=== PATIENT | male | born 1945 | race Caucasian/White ===

== ENCOUNTER → 2021-12-12 10:00 | Outpatient (BNVA) | payer MEDICARE, SELFPAY | PROVIDERS: PCP Internal Medicine; Visit Provider Internal Medicine Rheumatology | DX: M05.9 Rheumatoid arthritis with rheumatoid factor, unspecified (principal); C18.9 Malignant neoplasm of colon, unspecified; Z79.899 Other long term (current) drug therapy | CPT/HCPCS: 99212 ==

== ENCOUNTER 2022-06-30 10:14 | Outpatient (REF) | payer MEDICARE, OTHER, SELFPAY ==
[2022-06-30 14:11] LABS: MANUAL DIFF FLAG NO
[2022-06-30 14:17] LABS: Basophils Percent Auto 0.4 % (0-2); Eosinophils Absolute Auto 0.1 X10*3/uL (0.0-0.4); Eosinophils Percent Auto 0.8 % (0-4); Hematocrit 34.9 % (42.0-52.0); Hemoglobin 10.7 g/dl (14.0-18.0); Imm Gran Abs Auto 0.04 X10*3/uL (0.00-0.03); Imm Gran Pct Auto 0.5 % (0.0-0.4); Lymphocytes Absolute Auto 0.9 X10*3/uL (1.2-4.9); Lymphocytes Percent Auto 10.5 % (20-40); Mean Corpuscular HGB Conc 30.7 g/dl (31.0-36.0); Mean Corpuscular Hemoglobin 29.4 pg (27.0-33.0); Mean Corpuscular Volume 95.9 fL (80.0-98.0); Monocytes Absolute Auto 0.8 X10*3/uL (0.1-1.2); Monocytes Percent Auto 9.2 % (2-11); Neutrophils Absolute Auto 6.5 x10*3/uL (2.0-8.3); Neutrophils Percent Auto 78.6 % (45-73); Platelet Count 245 X10*3/uL (160-400); Red Blood Count 3.64 X10*6/uL (4.60-5.80); Red Cell Distribution Width 17.7 % (11.0-16.0); White Blood Count 8.3 X10*3/uL (4.8-10.8)
[2022-06-30 14:48] LABS: Alanine Aminotransferase 39 U/L (0-40); Albumin Level 3.4 g/dL (3.5-5.0); Alkaline Phosphatase 169 U/L (39-117); Anion Gap 18 (12-20); Aspartate Amino Transferase 21 U/L (5-37); Blood Urea Nitrogen 21 mg/dL (9-16); C Reactive Protein 5.42 mg/dL (< or = 0.50); Calcium 8.8 mg/dL (8.4-10.2); Carbon Dioxide 25 mmol/L (22-29); Chloride 100 mmol/L (96-108); Estimated Glomerular Filt Rate > 60; Glucose Random 166 mg/dL (60-115); Potassium 4.1 mmol/L (3.3-5.1); Sodium 139 mmol/L (135-145); Total Protein 6.6 g/dL (6.5-8.0)
[2022-06-30 14:56] LABS: Erythrocyte Sedimentation Rate 83 MM/HR (0-15)
[2022-06-30 15:41] LABS: Bilirubin Total 0.6 mg/dL (0.0-1.0)
== END 2022-06-30 10:15 | disposition home or self-care (01) ==
LOC: HO.WFDLDS 10:14
PROVIDERS: Visit Provider Internal Medicine Rheumatology
DX: M05.9 Rheumatoid arthritis with rheumatoid factor, unspecified (principal); Z79.899 Other long term (current) drug therapy
CPT/HCPCS: 36415; 80053; 85025; 85652; 86140

== ENCOUNTER → 2022-07-06 11:25 | Outpatient (BNVA) | payer MEDICARE, OTHER, SELFPAY | PROVIDERS: PCP Internal Medicine; Visit Provider Internal Medicine Rheumatology | DX: M05.9 Rheumatoid arthritis with rheumatoid factor, unspecified (principal); C18.9 Malignant neoplasm of colon, unspecified; Z79.899 Other long term (current) drug therapy | CPT/HCPCS: 99212 ==

== ENCOUNTER 2022-10-16 09:09 | Outpatient (REF) | payer MEDICARE, OTHER, SELFPAY ==
[2022-10-16 11:36] LABS: MANUAL DIFF FLAG NO
[2022-10-16 11:46] LABS: Basophils Percent Auto 0.3 % (0-2); Eosinophils Absolute Auto 0.1 X10*3/uL (0.0-0.4); Eosinophils Percent Auto 1.1 % (0-4); Hematocrit 34.8 % (42.0-52.0); Imm Gran Abs Auto 0.03 X10*3/uL (0.00-0.03); Imm Gran Pct Auto 0.4 % (0.0-0.4); Lymphocytes Absolute Auto 0.9 X10*3/uL (1.2-4.9); Lymphocytes Percent Auto 10.6 % (20-40); Mean Corpuscular HGB Conc 31.6 g/dl (31.0-36.0); Mean Platelet Volume 10.9 fL (9.4-12.4); Monocytes Absolute Auto 0.8 X10*3/uL (0.1-1.2); Monocytes Percent Auto 9.6 % (2-11); Neutrophils Absolute Auto 6.2 x10*3/uL (2.0-8.3); Platelet Count 225 X10*3/uL (160-400); Red Blood Count 3.55 X10*6/uL (4.60-5.80); Red Cell Distribution Width 17.5 % (11.0-16.0)
[2022-10-16 12:34] LABS: Alanine Aminotransferase 13 U/L (0-40); Albumin Level 3.2 g/dL (3.5-5.0); Alkaline Phosphatase 115 U/L (39-117); Anion Gap 14 (12-20); Aspartate Amino Transferase 18 U/L (5-37); Bilirubin Total 0.5 mg/dL (0.0-1.0); Blood Urea Nitrogen 21 mg/dL (9-16); C Reactive Protein 3.58 mg/dL (< or = 0.50); Calcium 8.7 mg/dL (8.4-10.2); Carbon Dioxide 27 mmol/L (22-29); Chloride 102 mmol/L (96-108); Estimated Glomerular Filt Rate > 60; Glucose Random 128 mg/dL (60-115); Potassium 4.1 mmol/L (3.3-5.1); Sodium 139 mmol/L (135-145); Total Protein 6.1 g/dL (6.5-8.0)
[2022-10-16 12:38] LABS: Erythrocyte Sedimentation Rate 78 MM/HR (0-15)
== END 2022-10-16 09:10 | disposition home or self-care (01) ==
LOC: HO.WFDLDS 09:09
PROVIDERS: Visit Provider Internal Medicine Rheumatology
DX: M05.9 Rheumatoid arthritis with rheumatoid factor, unspecified (principal); Z79.899 Other long term (current) drug therapy
CPT/HCPCS: 36415; 80053; 85025; 85652; 86140

== ENCOUNTER → 2022-10-17 10:49 | Outpatient (BNVA) | payer MEDICARE, OTHER, SELFPAY | PROVIDERS: PCP Internal Medicine; Visit Provider Internal Medicine Rheumatology | DX: M25.561 Pain in right knee (principal); M05.9 Rheumatoid arthritis with rheumatoid factor, unspecified; Z79.899 Other long term (current) drug therapy; Z96.652 Presence of left artificial knee joint | CPT/HCPCS: 20610; 99212 ==

== ENCOUNTER 2023-02-13 10:26 | Outpatient (AMB) | payer MEDICARE, OTHER, SELFPAY ==
[2023-02-13 10:45] VITALS: BP 98/62; PULSE 85; TEMP 36.4; O2SAT 94; BMI 22.4
--- NOTE | 2023-02-13 10:45 | MHC.OFFVIS ---
Intake Vital Signs 02/13/23 10:45 Height 5 ft 3 in Weight 126 lb 8.725 oz BMI 22.4 BP 98/62 Blood Pressure Location Lt brachial Position Sitting Pulse 85 Pulse Source Pulse Oximeter Temp 97.5 F Temp Source Skin Pulse Oximetry (%) 94 Intake Visit Reasons: ra Intake Note: Pt seen today for RA follow up. reports pt was seen at [facility] 2 weeks ago 01/26 for seizure, unknown cause. Marine Reporter Required: No Accompanied by: Spouse Gavi Allergies No Known Allergies Allergy (Verified 02/13/23 10:47) Medication List - Last Reconciled 02/13/23 by Eldon Hayden MD acetaminophen ER (Tylenol 8 Hour) 650 mg PO Q12H PRN apixaban (Eliquis) 5 mg PO BID atorvastatin 80 mg PO DAILY ferrous sulfate 325 mg PO DAILY folic acid 1 mg PO DAILY insulin glargine (Lantus Solostar U-100 Insulin) 10 units subcut QPM lansoprazole 90 mg PO DAILY methotrexate sodium 15 mg (6 x 2.5 mg) PO QWEEK prednisone 2.5 mg PO DAILY HPI HPI Comments History of Present Illness Details The patient returns accompanied by his for evaluation of his rheumatoid arthritis. I had last seen him back in September. He was on the prednisone at 2.5 mg daily, methotrexate 12.5 mg weekly and folic acid 1 mg daily. I increased his methotrexate up to 15 mg. He seems to tolerate that okay. However about 2 weeks ago he was found to be shaking and to be unresponsive. He was thought to have had a seizure. He was hospitalized and also found to have UTI and bladder outlet obstruction. He was given antibiotics, seizure medications and had a procedure to place a catheter that included dilation of the urethra. The catheter has been out for about a week and he seems to be urinating okay. He finished off antibiotics about around that time as well. Joints have been a bit more problematic, particularly the left shoulder and left wrist. There is also pain in the other wrist and the feet. He did receive a corticosteroid injection in the right knee last time in that did help him for some time. He was previously a bit better controlled taking the Xeljanz in addition to the methotrexate. The Xeljanz was held when he developed cancer, severe anemia from GI bleeding and he had subsequent surgery and chemotherapy. [facility] Medical History (Updated 02/13/23 @ 12:02 by Eldon Hayden MD) Barretts esophagus Colon cancer History of knee derangement Kidney stones Long-term use of immunosuppressant medication Seropositive rheumatoid arthritis Social History Household Members: Spouse Housing: [facility] Are you a primary healthcare economics manager to a significant other at home: No Do you presently have visiting nurse or other home services: No 75 years or older and lives alone: No Alcohol intake: never Patient Tobacco Use Status: Former Tobacco user Years Smoked: quit 25 years ago e-Cigarette/Vaping Use: Never Used service: Yes Current occupational status: retired Review of Systems Const Details: Low energy and some weight loss since his hospitalization. Negative for appetite change, fever, chills, malaise ENT Details: Negative for hearing change, tinnitus, oral ulcer, nose bleeds and oral dryness. Card Details: Negative chest pain, edema and syncope Resp Details: Negative for SOB, cough and wheezing GI Details: Negative indigestion/heartburn, nausea, abdominal pain, bowel changes, diarrhea, constipation and bloody stool. Details: Negative for dysuria, hematuria, nocturia, decreased force/flow and genital discharge Endo Details: Negative for polyuria and polydypsia Burke/Lymph Details: Negative for excessive bruising or bleeding. Physical Exam Vital Signs: Last Vital Signs Temp 97.5 F 02/13/23 10:45 Pulse 85 02/13/23 10:45 BP 98/62 02/13/23 10:45 Pulse Ox 94 02/13/23 10:45 BMI result Body Mass Index 22.4 APPEARANCE: Patient in no acute distress EYES no redness, pupils equal and reactive to light, eyelids normal EXTREMITIES: No edema, no calf tenderness, normal peripheral pulses. SKIN: No inflammatory or neoplastic lesions. Normal color and turgor JOINT EXAM: Cervical Spine:? Full range of motion without pain; no tenderness. Thoracic Spine:? No scoliosis.? No tenderness on palpation. Lumbar Spine:? Alignment normal.? Full range of motion without pain, no tenderness. Chest Wall:.? No tenderness, swelling, increased warmth or erythema. Hands:? Right:? Mild swelling with slight tenderness of the 1st 2 MCPs.? There is slight bony enlargement at the PIP joints; the 3rd and 4th have slight tenderness..? No other tenderness, thenar atrophy or sensory loss.? Left:? Mild tenderness and swelling of the 1st 2 MCP joints.? Some minimal bony thickening at the 2nd through 5th PIP joints without tenderness.? No thenar atrophy or sensory loss. Wrists:? Right: Mild to moderate pain with 30 degrees flexion and 45 degrees of extension.? There is mild soft tissue swelling and mild tenderness but no redness or warmth.? Left: Mild pain with 75 degrees of flexion and 30 degrees of extension with mild tenderness and slight swelling. Elbows:.? Left:? He lacks about 10 degrees of full extension with some thickening and mild pain with attempts at full extension or flexion beyond 90 degrees.? There is also mild tenderness but no redness or warmth.? Left:? Mild pain with attempts at the normal range of motion. He lacks about 10-15 degrees of full extension. There is mild tenderness and thickening over the joint space but no redness or warmth. Shoulders:? Left: Mild to moderate pain with abduction 90 degrees or with attempts at rotation.? Mild anterior tenderness.? No weakness or adenopathy.? Right:?? F mild pain with abduction 135 degrees or with the extremes of normal internal or external rotation. No abductor weakness or adenopathy. No swelling, increased warmth or erythema. Hips:.? Full range of motion without pain. Hip bursa:.? No tenderness. Knees:.??Right: Mild pain with the extremes of normal flexion or extension. There is mild patellofemoral crepitus but no effusion. There is mild and lateral tenderness without redness or warmth.? Left: Evidence of previous surgery.? No pain with motion, swelling, redness or warmth. Ankles:? Left: Slight discomfort with extremes of motion with some mild? tenderness but no swelling.? Right: ? Normal pain-free range of motion with mild tenderness but no swelling, increased warmth or erythema. Feet:.? Normal pain-free range of motion with evidence of bilateral hallux valgus deformity, more prominent on the left.? There is some bony enlargement at the 1st MTP joint bilaterally.? No soft tissue swelling, redness or warmth.? tenderness, swelling, increased warmth or erythema. Office Procedures Joint Injection/Drain Joint Injection/Drain Primary Site: left shoulder Injected: 40 mg of, Kenalog, with 1 mL of and 1% plain lidocaine Coding 98468 - Large joint Procedure code (CPT) selection complete Results Reviewed Results Reviewed: Lab work from [facility]: January 30: White count 5.9, hemoglobin 10.6, A1c 7.0, creatinine 1.2, AST 28, CPK 102 Assessment & Plan Assessment & Plan (1) Long-term use of immunosuppressant medication: Code(s): Z79.899 - Other intermodal dispatcher (current) drug therapy (2) Seropositive rheumatoid arthritis: Comment: Seropositive; hands, knee involvement. Onset ~ 2001. Hx left TKR 2004. Methotrexate started November 2011, Enbrel added 07/11. Methotrexate had to be stopped 07/12 due to LFT elevation. Enbrel ineffective. switch to Humira (12/11) but ineffective. Orencia started in place of Humira 03/13, sulfasalazine added 04/13 01/12: Orencia stopped. Xeljanz begun with sulfasalazine 02/13, low dose methotrexate added 05/17 - sulfasalazine stopped; methotrexate and Xeljanz continued 06/2021: Xeljanz held due to chemotherapy for malignancy mid 2021: Methotrexate restarted Code(s): M05.9 - Rheumatoid arthritis with rheumatoid factor, unspecified Plan Rheumatoid arthritis with still some ongoing synovitis. This is particularly evident in the wrists, elbows, shoulders. When he had reasonable blood work at [facility] showing that we could continue with the methotrexate at the current dose. In the past he had a better response when he was on the Xeljanz in conjunction with the methotrexate. Use of the Xeljanz now may be a problem since he has got a cancer that is just been treated, he has known carotid disease, and he is a diabetic. In any case he has had just recently UTI so it would be reasonable to wait a few months to see if the UTI problem becomes more problematic for him. That would make further immunosuppression imossible for him. Today I offered a subacromial corticosteroid injection in the left shoulder. With the patient's consent the left shoulder was prepped with ChloraPrep and alcohol. Under a topical ethyl chloride spray the left subacromial space was injected with 40 mg of triamcinolone and 1 cc of 1% lidocaine. The patient tolerated the procedure without any acute adverse effects. That should give him some systemic benefit with the increased dose of corticosteroid. We will see him back in 2 months and consider additional treatment. In the meantime he will stay with the methotrexate as above get lab work before the next visit. Orders: Orders AMB Joint Injection/Aspiration Today M05.9 - Rheumatoid arthritis with rheumatoid factor, unspecified Coding Level of Care Code Est Pt Level 3 (71341) Diagnoses Long-term use of immunosuppressant medication Z79.899 Seropositive rheumatoid arthritis M05.9 CPT Codes Coding - 58295 Large joint: 22779 - Large joint ([id number])
== END 2023-02-13 11:37 | disposition home or self-care (01) ==
PROVIDERS: PCP Internal Medicine; Visit Provider Internal Medicine Rheumatology
DX: Z79.899 Other long term (current) drug therapy (principal); M05.712 Rheumatoid arthritis with rheumatoid factor of left shoulder without organ or systems involvement; M05.769 Rheumatoid arthritis with rheumatoid factor of unspecified knee without organ or systems involvement
CPT/HCPCS: 20610; 99213

== ENCOUNTER → 2023-02-13 10:26 | Outpatient (BNVA) | payer MEDICARE, OTHER, SELFPAY | PROVIDERS: PCP Internal Medicine; Visit Provider Internal Medicine Rheumatology | DX: M05.9 Rheumatoid arthritis with rheumatoid factor, unspecified (principal); Z79.899 Other long term (current) drug therapy | CPT/HCPCS: 20610; 99212 ==

== ENCOUNTER 2023-04-19 11:47 | Outpatient (AMB) | payer MEDICARE, OTHER, SELFPAY ==
--- NOTE | 2023-04-19 11:53 | MHC.OFFVIS ---
Intake Vital Signs 04/19/23 12:06 Height 5 ft 3 in Weight 128 lb 15.527 oz BMI 22.8 BP 110/70 Blood Pressure Location Lt brachial Position Sitting Respiration 24 H Pulse 76 Pulse Source Palpation Temp 97.2 F Temp Source Skin Intake Visit Reasons: ra Intake Note: Patient here for RA follow up. Self Storage Manager Required: No Accompanied by: Spouse Allergies No Known Allergies Allergy (Verified 04/19/23 12:06) HPI HPI Comments History of Present Illness Details The patient returns for evaluation of his rheumatoid arthritis. His accompanies him today. He remains on prednisone taking 2.5 mg daily but occasionally his adds another 2.5 mg in the afternoon if he is having more pain. His methotrexate is at 15 mg weekly and folic acid 1 mg daily. The joint pains are not too problematic for him. He mostly complains of fatigue, low energy, and some numbness in the left hand. He has had no further urinary infections but does admit he is up 4 or 5 times a night with nocturia. He remains on apixaban, atorvastatin, Plavix, and pantoprazole. His breathing seems stable. His activity is mostly limited by some knee pain on the right. The left knee replacement seems to be doing fine. [facility] Medical History (Updated 02/13/23 @ 12:02 by Eldon Hayden MD) Long-term use of immunosuppressant medication History of knee derangement Kidney stones Barretts esophagus Colon cancer Seropositive rheumatoid arthritis Social History Household Members: [facility] Are you a primary critical care physician to a significant other at home: No Do you presently have visiting nurse or other home services: No 75 years or older and lives alone: No Alcohol intake: never Patient Tobacco Use Status: Former Tobacco user Years Smoked: quit 25 years ago e-Cigarette/Vaping Use: Never Used service: Yes Current occupational status: retired Review of Systems Const Details: Low energy. Negative for appetite change, weight change, fever, chills, malaise Eyes Details: Negative for vision change, dry eyes,headaches and dizziness ENT Details: Negative for hearing change, tinnitus, oral ulcer, nose bleeds and oral dryness. Card Details: Negative chest pain, edema and syncope Resp Details: Negative for SOB, cough and wheezing GI Details: Negative indigestion/heartburn, nausea, abdominal pain, bowel changes, diarrhea, constipation and bloody stool. Endo Details: Negative for polyuria and polydypsia Burke/Lymph Details: Negative for excessive bruising or bleeding. Physical Exam Vital Signs: Last Vital Signs Temp 97.2 F 04/19/23 12:06 Pulse 76 04/19/23 12:06 Resp 24 H 04/19/23 12:06 BP 110/70 04/19/23 12:06 BMI result Body Mass Index 22.8 APPEARANCE: Patient in no acute distress EYES no redness, pupils equal and reactive to light, eyelids normal EXTREMITIES: No edema, no calf tenderness. NEURO: Oriented and alert x3. Her strength is reduced in the left hand. He does have some numbness over the fingertips in that hand. Reflexes symmetric. Gait normal. SKIN: No inflammatory or neoplastic lesions. Normal color and turgor JOINT EXAM: Cervical Spine:? Full range of motion without pain; no tenderness. Thoracic Spine:? No scoliosis.? No tenderness on palpation. Lumbar Spine:? Alignment normal.? Full range of motion without pain, no tenderness. Chest Wall:.? No tenderness, swelling, increased warmth or erythema. Hands:? Right:? Mild swelling with slight tenderness of the 1st 2 MCPs.? There is slight bony enlargement at the PIP joints; no tenderness today.? No other tenderness, thenar atrophy or sensory loss.? Left:? Mild tenderness and swelling of the 1st 2 MCP joints.? Some minimal bony thickening at the 2nd through 5th PIP joints without tenderness.? There is some thenar atrophy and decreased sensation over the tips of the fingers. Wrists:? Right: Mild with 30 degrees flexion and 45 degrees of extension.? There is mild soft tissue swelling and mild tenderness but no redness or warmth.? Left: Mild pain with 75 degrees of flexion and 30 degrees of extension with mild tenderness and slight swelling. Elbows:.? Left:? He lacks about 10 degrees of full extension with some thickening and but no he pain with attempts at full extension or flexion beyond 90 degrees.? There is also mild tenderness but no redness or warmth.? Left:? Mild pain with attempts at the normal range of motion. He lacks about 10-15 degrees of full extension. There is mild tenderness and thickening over the joint space but no redness or warmth. Shoulders:? Left: Mild pain with abduction at 135 degrees or with attempts at rotation.? Mild anterior tenderness.? No weakness or adenopathy.? Right:?? Mild discomfort with abduction 135 degrees or with the extremes of normal internal or external rotation. No abductor weakness or adenopathy. No swelling, increased warmth or erythema. Hips:.? Full range of motion without pain. Hip bursa:.? No tenderness. Knees:.??Right: no pain with the extremes of normal flexion or extension. There is mild patellofemoral crepitus but no effusion. There is mild and lateral tenderness without redness or warmth.? Left: Evidence of previous surgery.? No pain with motion, swelling, redness or warmth. Ankles:? Left: Slight discomfort with extremes of motion with some mild? tenderness but no swelling.? Right: ? Normal pain-free range of motion with mild tenderness but no swelling, increased warmth or erythema. Feet:.? Normal pain-free range of motion with evidence of bilateral hallux valgus deformity, more prominent on the left.? There is some bony enlargement at the 1st MTP joint bilaterally.? No soft tissue swelling, redness or warmth.? tenderness, swelling, increased warmth or erythema. ? Assessment & Plan Assessment & Plan (1) History of total left knee replacement: Code(s): Z96.652 - Presence of left artificial knee joint (2) Long-term use of immunosuppressant medication: Code(s): Z79.899 - Other terminal operator (current) drug therapy (3) Seropositive rheumatoid arthritis: Comment: Seropositive; hands, knee involvement. Onset ~ 2001. Hx left TKR 2004. Methotrexate started November 2011, Enbrel added 07/11. Methotrexate had to be stopped 07/12 due to LFT elevation. Enbrel ineffective. switch to Humira (12/11) but ineffective. Orencia started in place of Humira 03/13, sulfasalazine added 04/13 01/12: Orencia stopped. Xeljanz begun with sulfasalazine 02/13, low dose methotrexate added 05/17 - sulfasalazine stopped; methotrexate and Xeljanz continued 06/2021: Xeljanz held due to chemotherapy for malignancy mid 2021: Methotrexate restarted Code(s): M05.9 - Rheumatoid arthritis with rheumatoid factor, unspecified Plan: Rheumatoid arthritis with longstanding disease. He has some chronic deformities but I do not see much tenderness today suggesting reasonable control of synovitis with current regimen. The knee replacement continues to do OK. I think at this point, given his multiple other problems, that I would not push further for immunosuppressive treatment. Such treatment might enable us to be a bit lower on the prednisone but would also put him at greater risk for infection. Additionally, switching to a TNF inhibitor might be problematic because of his history of heart failure. Using a CHIQUITA inhibitor also might promote his vascular disease from which he has already had significant problems. We will check lab work today and plan to see him back in about 3 months. He will stay with the 15 mg weekly methotrexate. Orders: Orders Erythrocyte Sedimentation Rate Today M05.9 - Rheumatoid arthritis with rheumatoid factor, unspecified Alanine Aminotransferase Today M05.9 - Rheumatoid arthritis with rheumatoid factor, unspecified, Z79.899 - Other senior care (current) drug therapy Aspartate Amino Transferase Today M05.9 - Rheumatoid arthritis with rheumatoid factor, unspecified, Z79.899 - Other terminal operator (current) drug therapy Creatinine Today M05.9 - Rheumatoid arthritis with rheumatoid factor, unspecified, Z79.899 - Other senior care (current) drug therapy C Reactive Protein Today M05.9 - Rheumatoid arthritis with rheumatoid factor, unspecified Complete Blood Count Auto Diff Today M05.9 - Rheumatoid arthritis with rheumatoid factor, unspecified, Z79.899 - Other terminal operator (current) drug therapy Coding Level of Care Code Est Pt Level 3 (14237) Diagnoses History of total left knee replacement Z96.652 Long-term use of immunosuppressant medication Z79.899 Seropositive rheumatoid arthritis M05.9
[2023-04-19 12:06] VITALS: BP 110/70; PULSE 76; RESP 24; TEMP 36.2; BMI 22.8
== END 2023-04-19 12:24 | disposition home or self-care (01) ==
PROVIDERS: PCP Internal Medicine; Visit Provider Internal Medicine Rheumatology
DX: M05.79 Rheumatoid arthritis with rheumatoid factor of multiple sites without organ or systems involvement (principal); Z79.899 Other long term (current) drug therapy; Z96.652 Presence of left artificial knee joint
CPT/HCPCS: 99214

== ENCOUNTER → 2023-04-19 11:47 | Outpatient (BNVA) | payer MEDICARE, OTHER, SELFPAY | PROVIDERS: PCP Internal Medicine; Visit Provider Internal Medicine Rheumatology ==

== ENCOUNTER 2023-04-20 10:20 | Outpatient (REF) | payer MEDICARE, OTHER, SELFPAY ==
[2023-04-20 14:27] LABS: MANUAL DIFF FLAG NO
[2023-04-20 14:39] LABS: Basophils Percent Auto 0.5 % (0-2); Eosinophils Absolute Auto 0.1 X10*3/uL (0.0-0.4); Eosinophils Percent Auto 1.5 % (0-4); Hematocrit 39.1 % (42.0-52.0); Hemoglobin 12.5 g/dl (14.0-18.0); Imm Gran Abs Auto 0.06 X10*3/uL (0.00-0.03); Lymphocytes Absolute Auto 0.7 X10*3/uL (1.2-4.9); Lymphocytes Percent Auto 10.5 % (20-40); Mean Corpuscular Hemoglobin 33.1 pg (27.0-33.0); Mean Corpuscular Volume 103.4 fL (80.0-98.0); Mean Platelet Volume 11.6 fL (9.4-12.4); Monocytes Absolute Auto 0.5 X10*3/uL (0.1-1.2); Monocytes Percent Auto 7.3 % (2-11); Neutrophils Absolute Auto 4.9 x10*3/uL (2.0-8.3); Neutrophils Percent Auto 79.2 % (45-73); Platelet Count 203 X10*3/uL (160-400); Red Blood Count 3.78 X10*6/uL (4.60-5.80); White Blood Count 6.2 X10*3/uL (4.8-10.8)
[2023-04-20 15:04] LABS: Alanine Aminotransferase 21 U/L (0-40); Aspartate Amino Transferase 22 U/L (5-37); C Reactive Protein 3.67 mg/dL (< or = 0.50); Estimated Glomerular Filt Rate 59
[2023-04-20 15:29] LABS: Erythrocyte Sedimentation Rate 63 MM/HR (0-15)
== END 2023-04-20 10:21 | disposition home or self-care (01) ==
LOC: HO.WFDLDS 10:20
PROVIDERS: Visit Provider Internal Medicine Rheumatology
DX: M05.9 Rheumatoid arthritis with rheumatoid factor, unspecified (principal); Z79.899 Other long term (current) drug therapy
CPT/HCPCS: 36415; 82565; 84450; 84460; 85025; 85652; 86140

== ENCOUNTER 2023-07-19 10:03 | Outpatient (AMB) | payer MEDICARE, OTHER, SELFPAY ==
--- NOTE | 2023-07-19 10:10 | MHC.OFFVIS ---
Intake Vital Signs 07/19/23 10:12 Height 5 ft 3 in Weight 130 lb 4.691 oz BMI 23.1 BP 116/72 Blood Pressure Location Lt brachial Position Sitting Respiration 15 Pulse 62 Pulse Source Pulse Oximeter Temp 97.5 F Temp Source Tympanic Pulse Oximetry (%) 96 Oxygen Delivery Method Room Air Oxygen Flow Rate 99 Intake Visit Reasons: ra Allergies No Known Allergies Allergy (Verified 07/19/23 10:12) Medication List - Last Reconciled 07/19/23 by Eldon Hayden MD acetaminophen ER (Tylenol 8 Hour) 650 mg PO Q12H PRN allopurinol 300 mg PO DAILY apixaban (Eliquis) 5 mg PO BID atorvastatin 80 mg PO DAILY ferrous sulfate 325 mg PO DAILY folic acid 1 mg PO DAILY insulin glargine (Lantus Solostar U-100 Insulin) 10 units subcut QPM methotrexate sodium 15 mg (6 x 2.5 mg) PO QWEEK pantoprazole 40 mg PO DAILY prednisone 2.5 mg PO DAILY HPI HPI Comments History of Present Illness Details The patient returns today with his . Shortly after I had seen him at the end of March he was found to have a mass in the liver. 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 He had a known colon cancer primary and had received surgery and chemotherapy before. He has had no abdominal pain or dysphagia. There has been no constipation or bleeding. It has been decided to put him on chemotherapy. He has received about 3 doses of 5 FU and FORFIRI through his port. He is presently in the midst of such an infusion with a portable device. Apparently he has remained on the 15 mg weekly methotrexate, folic acid 1 mg daily and prednisone 2.5 mg daily. Joints are fairly stable with still some pain in the knees with walking, right elbow, and occasionally the right wrist. He takes acetaminophen if needed for pain. [facility] Medical History Long-term use of immunosuppressant medication History of knee derangement Kidney stones Barretts esophagus Colon cancer Seropositive rheumatoid arthritis Social History Household Members: Spouse Housing: Condominium Are you a primary child day care center worker to a significant other at home: No Do you presently have visiting nurse or other home services: No 75 years or older and lives alone: No Alcohol intake: never Patient Tobacco Use Status: Former Tobacco user Years Smoked: quit 25 years ago e-Cigarette/Vaping Use: Never Used service: Yes Current occupational status: retired Review of Systems Const Details: Some decrease in appetite. Negative for, weight change, fever, chills, malaise and fatigue Eyes Details: Negative for vision change, dry eyes,headaches and dizziness ENT Details: Negative for hearing change, tinnitus, oral ulcer, nose bleeds and oral dryness. Card Details: Negative chest pain, edema and syncope Resp Details: Negative for SOB, cough and wheezing GI Details: Some loose stools with chemotherapy. Negative indigestion/heartburn, nausea, abdominal pain, bowel changes, constipation and bloody stool. Details: Negative for dysuria, hematuria, nocturia, decreased force/flow and genital discharge Skin/Breast Details: Negative for itching, rash, hives, Raynaud's symptoms, sun sensitivity, and skin cancer Endo Details: Negative for polyuria and polydypsia Burke/Lymph Details: Negative for excessive bruising or bleeding. Physical Exam Vital Signs: Last Vital Signs Temp 97.5 F 07/19/23 10:12 Pulse 62 07/19/23 10:12 Resp 15 07/19/23 10:12 BP 116/72 07/19/23 10:12 Pulse Ox 96 07/19/23 10:12 Oxygen Delivery Method Room Air 07/19/23 10:12 Oxygen Flow Rate 99 07/19/23 10:12 BMI result Body Mass Index 23.1 APPEARANCE: Patient in no acute distress EYES no redness, pupils equal and reactive to light, eyelids normal EXTREMITIES: Trace ankle edema. no calf tenderness, normal peripheral pulses. JOINT EXAM: ? Cervical Spine:? Full range of motion without pain; no tenderness. Thoracic Spine:? No scoliosis.? No tenderness on palpation. Lumbar Spine:? Alignment normal.? Full range of motion without pain, no tenderness. Chest Wall:.? No tenderness, swelling, increased warmth or erythema. Hands:? Right:? Mild swelling with slight tenderness of the 1st 2 MCPs.? There is slight bony enlargement at the PIP joints; no tenderness today.? No other tenderness, thenar atrophy or sensory loss.? Left:? Mild tenderness and swelling of the 1st 2 MCP joints.? Some minimal bony thickening at the 2nd through 5th PIP joints without tenderness.? There is some thenar atrophy and decreased sensation over the tips of the fingers. Wrists:? Right: Mild with 30 degrees flexion and 45 degrees of extension.? There is mild soft tissue swelling and mild tenderness but no redness or warmth.? Left: Mild pain with 75 degrees of flexion and 30 degrees of extension with mild tenderness and slight swelling. Elbows:.? Left:? Normal pain-free range of motion. No tenderness or swelling. There is no redness or warmth.? Right: Slight discomfort at full extension. He lacks about 10 degrees of full extension. There is mild tenderness and thickening over the joint space but no redness or warmth. Shoulders:? Left: Mild pain with abduction at 135 degrees or with attempts at rotation.? Mild anterior tenderness.? No weakness or adenopathy.? Right:?? Mild discomfort with the the extremes of normal abduction and internal or external rotation. No abductor weakness or adenopathy. No swelling, increased warmth or erythema. Hips:.? Full range of motion without pain. Hip bursa:.? No tenderness. Knees:.??Right: no pain with the extremes of normal flexion or extension. There is mild patellofemoral crepitus but no effusion. There is mild and lateral tenderness without redness or warmth.? Left: Evidence of previous surgery.? No pain with motion, swelling, redness or warmth. Ankles:? Left: Slight discomfort with extremes of motion with some mild? tenderness but no swelling.? Right: ? Normal pain-free range of motion with mild tenderness but no swelling, increased warmth or erythema. Feet:.? Normal pain-free range of motion with evidence of bilateral hallux valgus deformity, more prominent on the left.? There is some bony enlargement at the 1st MTP joint bilaterally.? No soft tissue swelling, redness or warmth.? tenderness, swelling, increased warmth or erythema. ?? Results Reviewed Results Reviewed: Laboratory Tests 04/20/23 10:21 Hgb 12.5 L Creatinine 1.19 AST 22 ALT 21 C-Reactive Protein 3.67 H Assessment & Plan Assessment & Plan (1) Long-term use of immunosuppressant medication: Code(s): Z79.899 - Other terminal computer operator (current) drug therapy (2) Colon cancer: Comment: 2020 colonoscopy showed [address] CT scan showed mass adjacent to colon. PET scan 04/19 ascending colonic hypermetabolic malignancy. Right lower lobe 1.8 cm irreg nodule most likely metastasis but biopsy showed pneumonia). 06/2021: colon mass resected; chemotherapy started fluorouracil and oxaliplatin 04/2023 solitary liver met - colon adenoca on biopsy 05/2023 Folfiri chemo started Code(s): C18.9 - Malignant neoplasm of colon, unspecified (3) Seropositive rheumatoid arthritis: Comment: Seropositive; hands, knee involvement. Onset ~ 2001. Hx left TKR 2004. Methotrexate started November 2011, Enbrel added 07/11. Methotrexate had to be stopped 07/12 due to LFT elevation. Enbrel ineffective. switch to Humira (12/11) but ineffective. Orencia started in place of Humira 03/13, sulfasalazine added 04/13 01/12: Orencia stopped. Xeljanz begun with sulfasalazine 02/13, low dose methotrexate added 05/17 - sulfasalazine stopped; methotrexate and Xeljanz continued 06/2021: Xeljanz held due to chemotherapy for malignancy mid 2021: Methotrexate restarted Code(s): M05.9 - Rheumatoid arthritis with rheumatoid factor, unspecified Plan Rheumatoid arthritis with still some synovitis evident on exam. Additional treatment options are limited by his comorbidities: His history of heart failure, kidney stones with frequent infections, his history of colon cancer, and now metastatic cancer being treated with chemotherapy agents. The methotrexate toxicity does overlap with some of the toxicities for his chemotherapy so I think we will stop the methotrexate. It could be restarted if and when he gets off the chemotherapy. We will stay with the prednisone at the current low dose. If there are flares of synovitis the only option would be to push up his prednisone a bit. We will aim for follow-up at about 3-4 months. Medications: Discontinued methotrexate sodium Discontinued Reason: Doctor's Order 15 mg (6 x 2.5 mg) PO QWEEK 72 tabs 1RF M05.9 - Rheumatoid arthritis with rheumatoid factor, unspecified Coding Level of Care Code Est Pt Level 4 (46828) Diagnoses Long-term use of immunosuppressant medication Z79.899 Colon cancer C18.9 Seropositive rheumatoid arthritis M05.9
[2023-07-19 10:12] VITALS: BP 116/72; PULSE 62; RESP 15; TEMP 36.4; O2SAT 96; BMI 23.1
== END 2023-07-19 11:25 | disposition home or self-care (01) ==
PROVIDERS: PCP Internal Medicine; Visit Provider Internal Medicine Rheumatology
DX: M05.79 Rheumatoid arthritis with rheumatoid factor of multiple sites without organ or systems involvement (principal); Z79.899 Other long term (current) drug therapy; C18.9 Malignant neoplasm of colon, unspecified
CPT/HCPCS: 99214

== ENCOUNTER → 2023-07-19 10:03 | Outpatient (BNVA) | payer MEDICARE, OTHER, SELFPAY | PROVIDERS: PCP Internal Medicine; Visit Provider Internal Medicine Rheumatology | DX: M05.9 Rheumatoid arthritis with rheumatoid factor, unspecified (principal); C18.9 Malignant neoplasm of colon, unspecified; Z79.899 Other long term (current) drug therapy | CPT/HCPCS: 99212 ==

== ENCOUNTER 2024-01-08 10:47 | Outpatient (AMB) | payer MEDICARE, OTHER, SELFPAY ==
[2024-01-08 10:53] VITALS: BP 112/60; PULSE 93; O2SAT 98; BMI 22.0
--- NOTE | 2024-01-08 10:53 | A.OFFVIS_ITS ---
Vital Signs 01/08/24 10:53 Height 5 ft 3 in Weight 124 lb 1.924 oz BMI 22.0 BP 112/60 Blood Pressure Location Rt brachial Position Sitting Pulse 93 Pulse Source Pulse Oximeter Pulse Oximetry (%) 98 Oxygen Delivery Method Room Air Intake Visit Reasons: Arm Pain Intake Note: S/P radiation with oncology, reports bl arm pain since then. Last seen by Dr Hayden June 2023. Research Librarian Required: No Accompanied by: Spouse Allergies No Known Allergies Allergy (Verified 01/08/24 11:04) Medication List - Last Reconciled 01/08/24 by Bernice Arellano MD acetaminophen ER (Tylenol 8 Hour) 650 mg PO Q12H PRN allopurinol 300 mg PO DAILY apixaban (Eliquis) 5 mg PO BID atorvastatin 80 mg PO DAILY ferrous sulfate 325 mg PO DAILY folic acid 1 mg PO DAILY insulin glargine (Lantus Solostar U-100 Insulin) 10 units subcut QPM pantoprazole 40 mg PO DAILY prednisone 2.5 mg PO DAILY HPI Comments Details: 78-year-old male with seropositive RA returns for follow-up with his . Patient completed chemotherapy recently and also completed radiation therapy 2 weeks ago. No further chemotherapy or radio therapy is scheduled at this point. Per he started having flare-up of his arthritis 1 or 2 weeks ago getting his arms he has increased his prednisone to 5 mg daily over the last 3-4 days with some relief. Most recent history by Dr. Hayden 06/2023: The patient returns today with his . Shortly after I had seen him at the end of March he was found to have a mass in the liver. 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 He had a known colon cancer primary and had received surgery and chemotherapy before. He has had no abdominal pain or dysphagia. There has been no constipation or bleeding. It has been decided to put him on chemotherapy. He has received about 3 doses of 5 FU and FORFIRI through his port. He is presently in the midst of such an infusion with a portable device. Apparently he has remained on the 15 mg weekly methotrexate, folic acid 1 mg daily and prednisone 2.5 mg daily. Joints are fairly stable with still some pain in the knees with walking, right elbow, and occasionally the right wrist. He takes acetaminophen if needed for pain. [facility] Medical History Long-term use of immunosuppressant medication History of knee derangement Kidney stones Barretts esophagus Colon cancer Seropositive rheumatoid arthritis Social History Household Members: Spouse [facility] Are you a primary career services representative to a significant other at home: No Do you presently have visiting nurse or other home services: No 75 years or older and lives alone: No Alcohol intake: never Patient Tobacco Use Status: Former Tobacco user Years Smoked: quit 25 years ago e-Cigarette/Vaping Use: Never Used service: Yes Current occupational status: retired Review of Systems ENT Reports neck pain Musc Reports arthralgias, Reports joint swelling, Reports neck pain and Reports stiffness Physical Exam Vital Signs: Last Vital Signs Pulse 93 01/08/24 10:53 BP 112/60 01/08/24 10:53 Pulse Ox 98 01/08/24 10:53 Oxygen Delivery Method Room Air 01/08/24 10:53 BMI result Body Mass Index 22.0 Const General: cooperative Nutritional Appearance: cachectic Orientation/consciousness: patient oriented x3 Limitations: ambulation with cane HEENT Other: Bilateral temporal wasting Resp Effort & Inspection: normal respiratory effort and able to speak in complete sentences Neuro General: patient oriented x3 Extrem Other: Bilateral dorsal wrist swelling and tenderness. Per patient the swelling is chronic At her wrist pain with full flexion and extension Right hand positive MCP squeeze test Bilateral reduced nephrology social worker strength Left 2nd and 3rd MCP tenderness Tender PIP is bilaterally Bilateral elbow pain with full extension Able to fully abduct h his shoulders but with difficulty Significant right knee crepitus Assessment & Plan Assessment & Plan (1) Seropositive rheumatoid arthritis: Comment: Seropositive; hands, knee involvement. Onset ~ 2001. Hx left TKR 2004. Methotrexate started November 2011, Enbrel added 07/11. Methotrexate had to be stopped 07/12 due to LFT elevation. Enbrel ineffective. switch to Humira (12/11) but ineffective. Orencia started in place of Humira 03/13, sulfasalazine added 04/13 01/12: Orencia stopped. Xeljanz begun with sulfasalazine 02/13, low dose methotrexate added 05/17 - sulfasalazine stopped; methotrexate and Xeljanz continued 06/2021: Xeljanz held due to chemotherapy for malignancy mid 2021: Methotrexate restarted. MTX DC 06/2023 due to concomitant chemotherapy Code(s): M05.9 - Rheumatoid arthritis with rheumatoid factor, unspecified Category: Medical Plan: This is a 78-year-old male with seropositive RA who returns for follow-up. This is his 1st visit with me. He used to follow-up with Dr. Hayden. Dr. Hayden discontinued his methotrexate 06/2023 due to concomitant chemotherapy with possible added side effects. Completed chemotherapy and radiation to the liver. He has been on prednisone 2.5 mg regularly over the last 6 months. Per patient and his has been having a flare-up over the last 2 weeks affecting his arms. He doubled up on his prednisone to 5 mg daily over the last 3-4 days with some relief. I can not tell whether patient was getting steroids as premedication for his chemotherapy. Will check labs today. If unremarkable, plan to restart methotrexate. If LFTs are abnormal, will consider starting hydroxychloroquine. Discussed risks and benefits of hydroxychloroquine Labs before next visit in 3 months (2) Long-term use of immunosuppressant medication: Code(s): Z79.899 - Other terminal block assembler (current) drug therapy Category: Medical Plan: Monitor safety labs Plan I spent 46 minutes reviewing patient's chart, evaluating patient, ordering diagnostic workup, counseling patient and documenting in the chart Orders: Orders Comprehensive Met. Panel Today M05.9 - Rheumatoid arthritis with rheumatoid factor, unspecified, Z79.899 - Other fpc (current) drug therapy C Reactive Protein Today M05.9 - Rheumatoid arthritis with rheumatoid factor, unspecified, Z79.899 - Other fpc (current) drug therapy Erythrocyte Sedimentation Rate Today M05.9 - Rheumatoid arthritis with rheumatoid factor, unspecified, Z79.899 - Other fpc (current) drug therapy Complete Blood Count Auto Diff 3 Months M05.9 - Rheumatoid arthritis with rheumatoid factor, unspecified Comprehensive Met. Panel 3 Months M05.9 - Rheumatoid arthritis with rheumatoid factor, unspecified C Reactive Protein 3 Months M05.9 - Rheumatoid arthritis with rheumatoid factor, unspecified Complete Blood Count Auto Diff Today M05.9 - Rheumatoid arthritis with rheumatoid factor, unspecified, Z79.899 - Other fpc (current) drug therapy Hepatitis A,B,C Profile Today Z11.59 - Encounter for screening for other viral diseases T Spot TB Today Z11.7 - Encounter for testing for latent tuberculosis infection Cyclic Citrullinated Peptide Today M05.9 - Rheumatoid arthritis with rheumatoid factor, unspecified Erythrocyte Sedimentation Rate 3 Months M05.9 - Rheumatoid arthritis with rheumatoid factor, unspecified Coding Level of Care Code Est Pt Level 4 (21124) Diagnoses Seropositive rheumatoid arthritis M05.9 Long-term use of immunosuppressant medication Z79.896
== END 2024-01-08 11:34 | disposition home or self-care (01) ==
PROVIDERS: PCP Internal Medicine; Visit Provider Student in an Organized Health Care Education/Training Program
DX: M05.79 Rheumatoid arthritis with rheumatoid factor of multiple sites without organ or systems involvement (principal); Z79.899 Other long term (current) drug therapy
CPT/HCPCS: 99214

== ENCOUNTER → 2024-01-08 10:47 | Outpatient (BNVA) | payer MEDICARE, BC, SELFPAY | PROVIDERS: PCP Internal Medicine; Visit Provider Student in an Organized Health Care Education/Training Program | DX: M05.9 Rheumatoid arthritis with rheumatoid factor, unspecified (principal); Z79.899 Other long term (current) drug therapy | CPT/HCPCS: 99212 ==

== ENCOUNTER 2024-01-09 09:29 | Outpatient (REF) | payer MEDICARE, OTHER, SELFPAY ==
[2024-01-09 11:32] LABS: MANUAL DIFF FLAG NO
[2024-01-09 11:41] LABS: Basophils Percent Auto 0.3 % (0-2); Eosinophils Absolute Auto 0.1 X10*3/uL (0.0-0.4); Eosinophils Percent Auto 1.3 % (0-4); Hematocrit 37.5 % (42.0-52.0); Hemoglobin 11.6 g/dl (14.0-18.0); Imm Gran Abs Auto 0.04 X10*3/uL (0.00-0.03); Imm Gran Pct Auto 0.6 % (0.0-0.4); Lymphocytes Absolute Auto 0.8 X10*3/uL (1.2-4.9); Mean Corpuscular HGB Conc 30.9 g/dl (31.0-36.0); Mean Corpuscular Volume 100.3 fL (80.0-98.0); Mean Platelet Volume 10.9 fL (9.4-12.4); Monocytes Absolute Auto 0.7 X10*3/uL (0.1-1.2); Monocytes Percent Auto 10.6 % (2-11); Neutrophils Absolute Auto 4.7 x10*3/uL (2.0-8.3); Neutrophils Percent Auto 75.2 % (45-73); Platelet Count 214 X10*3/uL (160-400); Red Blood Count 3.74 X10*6/uL (4.60-5.80); Red Cell Distribution Width 16.8 % (11.0-16.0); White Blood Count 6.2 X10*3/uL (4.8-10.8)
[2024-01-09 12:09] LABS: Alanine Aminotransferase 14 U/L (0-40); Albumin Level 3.3 g/dL (3.5-5.0); Alkaline Phosphatase 103 U/L (39-117); Anion Gap 14 (12-20); Aspartate Amino Transferase 21 U/L (5-37); Bilirubin Total 0.4 mg/dL (0.0-1.0); Blood Urea Nitrogen 21 mg/dL (9-16); C Reactive Protein 2.12 mg/dL (< or = 0.50); Carbon Dioxide 21 mmol/L (22-29); Chloride 106 mmol/L (96-108); Estimated Glomerular Filt Rate > 60; Glucose Random 143 mg/dL (60-115); Potassium 3.8 mmol/L (3.3-5.1); Sodium 137 mmol/L (135-145); Total Protein 6.8 g/dL (6.5-8.0)
[2024-01-09 12:14] LABS: HBS Num1 0.27 mIU/mL (0-7.99); HBc Num1 0.23 S/CO (0.00-0.79); Hepatitis A Antibody IgM 0.29 Index (0-0.79); Hepatitis B Core Antibody Nonreactive (Nonreactive); Hepatitis B Surface Antigen Negative (Negative); ~HepC Num1 0.18 S/CO (0.00-0.79); ~Hepatitis A Antibody IgM Nonreactive (Nonreactive); ~Hepatitis B Surface Antibody NONREACTIVE (Nonreactive); ~Hepatitis C Antibody Nonreactive (Nonreactive)
[2024-01-09 12:41] LABS: Erythrocyte Sedimentation Rate 68 MM/HR (0-15)
[2024-01-12 10:13] LABS: TS Negative Control Passed; TS Panel A 0; TS Panel B 0; TS Positive Control Passed; TSpotTB Negative (Negative)
[2024-01-14 11:13] LABS: Cyclic Citrullinated Peptide >250 UNITS
== END 2024-01-09 09:30 | disposition home or self-care (01) ==
LOC: HO.WFDLDS 09:29
PROVIDERS: Visit Provider Student in an Organized Health Care Education/Training Program
DX: M05.9 Rheumatoid arthritis with rheumatoid factor, unspecified (principal); Z79.899 Other long term (current) drug therapy; Z11.59 Encounter for screening for other viral diseases; Z11.7 Encounter for testing for latent tuberculosis infection
CPT/HCPCS: 36415; 80053; 85025; 85652; 86140; 86200; 86481; 86704; 86706; 86709; 86803; 87340

== ENCOUNTER 2024-04-14 11:02 | Outpatient (REF) | payer MEDICARE, OTHER, SELFPAY ==
[2024-04-14 14:30] LABS: MANUAL DIFF FLAG NO
[2024-04-14 14:40] LABS: Basophils Percent Auto 0.1 % (0-2); Eosinophils Absolute Auto 0.1 X10*3/uL (0.0-0.4); Eosinophils Percent Auto 0.7 % (0-4); Hematocrit 34.5 % (42.0-52.0); Hemoglobin 10.9 g/dl (14.0-18.0); Imm Gran Abs Auto 0.03 X10*3/uL (0.00-0.03); Imm Gran Pct Auto 0.4 % (0.0-0.4); Lymphocytes Absolute Auto 0.8 X10*3/uL (1.2-4.9); Lymphocytes Percent Auto 11.2 % (20-40); Mean Corpuscular HGB Conc 31.6 g/dl (31.0-36.0); Mean Corpuscular Volume 104.5 fL (80.0-98.0); Mean Platelet Volume 10.7 fL (9.4-12.4); Monocytes Absolute Auto 0.7 X10*3/uL (0.1-1.2); Monocytes Percent Auto 9.5 % (2-11); Neutrophils Absolute Auto 5.5 x10*3/uL (2.0-8.3); Neutrophils Percent Auto 78.1 % (45-73); Platelet Count 228 X10*3/uL (160-400); Red Cell Distribution Width 17.2 % (11.0-16.0); White Blood Count 7.1 X10*3/uL (4.8-10.8)
[2024-04-14 14:57] LABS: Alanine Aminotransferase 22 U/L (0-40); Albumin Level 3.2 g/dL (3.5-5.0); Alkaline Phosphatase 163 U/L (39-117); Anion Gap 13 (12-20); Aspartate Amino Transferase 25 U/L (5-37); Bilirubin Total 0.7 mg/dL (0.0-1.0); Blood Urea Nitrogen 20 mg/dL (9-16); C Reactive Protein 1.78 mg/dL (< or = 0.50); Calcium 9.3 mg/dL (8.4-10.2); Carbon Dioxide 26 mmol/L (22-29); Chloride 102 mmol/L (96-108); Estimated Glomerular Filt Rate 51; Glucose Random 226 mg/dL (60-115); Sodium 137 mmol/L (135-145); Total Protein 6.5 g/dL (6.5-8.0)
[2024-04-14 15:33] LABS: Erythrocyte Sedimentation Rate 78 MM/HR (0-15)
== END 2024-04-14 11:03 | disposition home or self-care (01) ==
LOC: HO.WFDLDS 11:02
PROVIDERS: Referring Provider Internal Medicine Rheumatology; Visit Provider Student in an Organized Health Care Education/Training Program
DX: M05.9 Rheumatoid arthritis with rheumatoid factor, unspecified (principal); Z79.899 Other long term (current) drug therapy
CPT/HCPCS: 36415; 80053; 85025; 85652; 86140

== ENCOUNTER 2024-04-15 10:22 | Outpatient (AMB) | payer MEDICARE, BC, SELFPAY ==
--- NOTE | 2024-04-15 10:24 | MHC.OFFVIS ---
Vital Signs 04/15/24 10:28 Height 5 ft 3 in Weight 118 lb 6.212 oz BMI 21.0 BP 90/64 Blood Pressure Location Rt brachial Position Sitting Pulse 86 Pulse Source Pulse Oximeter Pulse Oximetry (%) 100 Oxygen Delivery Method Room Air Intake Visit Reasons: RA Intake Note: Patient presents for RA. Allergies No Known Allergies Allergy (Verified 04/15/24 10:28) Medication List - Last Reconciled 04/15/24 by Bernice Arellano MD acetaminophen ER (Tylenol 8 Hour) 650 mg PO Q12H PRN allopurinol 300 mg PO DAILY apixaban (Eliquis) 5 mg PO BID atorvastatin 80 mg PO DAILY ferrous sulfate 325 mg PO DAILY folic acid 1 mg PO DAILY folic acid 1 mg PO DAILY insulin glargine (Lantus Solostar U-100 Insulin) 10 units subcut QPM methotrexate sodium 15 mg (6 x 2.5 mg) PO QWEEK pantoprazole 40 mg PO DAILY prednisone 2.5 mg PO DAILY HPI Comments Details: 79-year-old male with seropositive RA and metastatic colon cancer returns for follow-up with his . Last visit we restarted methotrexate at 15 mg once weekly. Patient states that he feels about the same overall. He is also on prednisone 2.5 mg daily. Per a new small metastatic lesion was found in his liver and he will have an appointment with his oncologist and radiation oncologist soon. Most recent history by Dr. Hayden 06/2023: The patient returns today with his . Shortly after I had seen him at the end of March he was found to have a mass in the liver. 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 He had a known colon cancer primary and had received surgery and chemotherapy before. He has had no abdominal pain or dysphagia. There has been no constipation or bleeding. It has been decided to put him on chemotherapy. He has received about 3 doses of 5 FU and FORFIRI through his port. He is presently in the midst of such an infusion with a portable device. Apparently he has remained on the 15 mg weekly methotrexate, folic acid 1 mg daily and prednisone 2.5 mg daily. Joints are fairly stable with still some pain in the knees with walking, right elbow, and occasionally the right wrist. He takes acetaminophen if needed for pain. [facility] Medical History Long-term use of immunosuppressant medication History of knee derangement Kidney stones Barretts esophagus Colon cancer Seropositive rheumatoid arthritis Social History Household Members: Spouse Housing: Condominium Are you a primary healthcare economics manager to a significant other at home: No Do you presently have visiting nurse or other home services: No 75 years or older and lives alone: No Alcohol intake: never Patient Tobacco Use Status: Former Tobacco user Years Smoked: quit 25 years ago e-Cigarette/Vaping Use: Never Used service: Yes Current occupational status: retired Review of Systems ENT Reports neck pain Musc Reports back pain, Reports arthralgias, Reports muscle weakness, Reports neck pain and Reports stiffness Physical Exam Vital Signs: Last Vital Signs Pulse 86 04/15/24 10:28 BP 90/64 04/15/24 10:28 Pulse Ox 100 04/15/24 10:28 Oxygen Delivery Method Room Air 04/15/24 10:28 BMI result Body Mass Index 21.0 Const General: cooperative Nutritional Appearance: cachectic Orientation/consciousness: patient oriented x3 Limitations: ambulation with walker HEENT Other: Bilateral temporal wasting Resp Effort & Inspection: normal respiratory effort and able to speak in complete sentences Neuro General: patient oriented x3 Extrem Other: Bilateral dorsal wrist swelling and tenderness. Per patient the swelling is chronic Bilateral wrist pain with full flexion and extension Bilateral negative MCP squeeze test Bilateral reduced trencher driver strength No MCP or PIP tenderness or swelling today Bilateral elbow pain with full extension Able to fully abduct h his shoulders but with difficulty Significant right knee crepitus Assessment & Plan Assessment & Plan (1) Seropositive rheumatoid arthritis: Comment: ++RF+++CCp; hands, knee involvement. Onset ~ 2001. Hx left TKR 2004. Methotrexate started November 2011, Enbrel added 07/11. Methotrexate had to be stopped 07/12 due to LFT elevation. Enbrel ineffective. switch to Humira (12/11) but ineffective. Orencia started in place of Humira 03/13, sulfasalazine added 04/13 01/12: Orencia stopped. Xeljanz begun with sulfasalazine 02/13, low dose methotrexate added 05/17 - sulfasalazine stopped; methotrexate and Xeljanz continued 06/2021: Xeljanz held due to chemotherapy for malignancy mid 2021: Methotrexate restarted. MTX DC 06/2023 due to concomitant chemotherapy Chemo completed 12/2023 MTX 15 mg/week +PDN 2.5 mg/d restarted Code(s): M05.9 - Rheumatoid arthritis with rheumatoid factor, unspecified Category: Medical Plan: This is a 79-year-old male with seropositive RA who returns for follow-up. Methotrexate was restarted last visit 3 months ago. He is on methotrexate 15 mg weekly. On exam he has less swollen and tender joints. Continue methotrexate 15 mg weekly plus folic acid 1 mg daily and prednisone 2.5 mg daily. Per patient was recently found to have a new small metastatic spot in his liver and he will see his oncologist and radiation oncologist soon to decide on treatment. Advised patient to let me know whether chemotherapy will be restarted. Labs before next visit in 3 months (2) Long-term use of immunosuppressant medication: Code(s): Z79.899 - Other mcfp (current) drug therapy Category: Medical Plan: Monitor safety labs Plan I spent 26 minutes reviewing patient's chart, evaluating patient, ordering diagnostic workup, counseling patient & and documenting in the chart Orders: Orders Complete Blood Count Auto Diff 3 Months M05.9 - Rheumatoid arthritis with rheumatoid factor, unspecified, Z79.899 - Other intermodal dispatcher (current) drug therapy Comprehensive Met. Panel 3 Months M05.9 - Rheumatoid arthritis with rheumatoid factor, unspecified, Z79.899 - Other intermodal dispatcher (current) drug therapy C Reactive Protein 3 Months M05.9 - Rheumatoid arthritis with rheumatoid factor, unspecified, Z79.899 - Other intermodal dispatcher (current) drug therapy Erythrocyte Sedimentation Rate 3 Months M05.9 - Rheumatoid arthritis with rheumatoid factor, unspecified, Z79.899 - Other intermodal dispatcher (current) drug therapy Medications: Refilled prednisone 2.5 mg PO DAILY 90 tabs 0RF M05.9 - Rheumatoid arthritis with rheumatoid factor, unspecified Coding Level of Care Code Est Pt Level 4 (64603) Diagnoses Seropositive rheumatoid arthritis M05.9 Long-term use of immunosuppressant medication Z79.899
[2024-04-15 10:28] VITALS: BP 90/64; PULSE 86; O2SAT 100; BMI 21.0
== END 2024-04-15 10:53 | disposition home or self-care (01) ==
PROVIDERS: PCP Internal Medicine; Visit Provider Student in an Organized Health Care Education/Training Program
DX: M05.79 Rheumatoid arthritis with rheumatoid factor of multiple sites without organ or systems involvement (principal); Z79.899 Other long term (current) drug therapy
CPT/HCPCS: 99214

== ENCOUNTER → 2024-04-15 10:22 | Outpatient (BNVA) | payer MEDICARE, BC, SELFPAY | PROVIDERS: PCP Internal Medicine; Visit Provider Student in an Organized Health Care Education/Training Program | DX: M05.9 Rheumatoid arthritis with rheumatoid factor, unspecified (principal); Z79.899 Other long term (current) drug therapy | CPT/HCPCS: 99212 ==